=== PATIENT | female | born 1960 | race Hispanic/Latino ===

== ENCOUNTER 2016-07-11 08:23 | Observation (INO) | payer BC ==
[~2016-07-11] VITALS: Ht 152.4 cm; Wt 86.6 kg
[~2016-07-11 08:23] MED LIST: AMARYL4 MG PO; AMOXICILLIN500 MG PO; AMOXICILLIN875 MG PO; ASPIRIN 8181 MG PO; LIPITOR40 M1 PO; LISINOPRIL20 M1 PO; METFORMIN1000 MG PO
--- NOTE | 2016-07-11 08:26 | NUR ---
PT TO ROOM VIA WHEELCHAIR FOR TREATMENT
[2016-07-11 08:49] LABS: HEMATOCRIT 36.8 % (37.0-47.0); HEMOGLOBIN 11.9 g/dl (12.0-16.0); IMMATURE GRANULOCYTES 0.3 % (0.0-1.0); MEAN CELL VOLUME 83.3 fL CALC (80.0-100.0); MEAN CORPUSCULAR HGB 26.9 pG CALC (26.0-32.0); MEAN CORPUSCULAR HGB CONC 32.3 g/L CALC (32.0-36.0); NEUT# 6.59 thou/uL (2.00-7.15); RED BLOOD COUNT 4.42 mill/uL (4.20-5.60); RED CELL DISTRI WIDTH 17.2 % (11.5-15.5)
[2016-07-11] MEDS ORDERED: FERROUS SULF325 M2 PO (08:50)
[2016-07-11] MEDS ORDERED: ASPIRIN81 MG PO (08:51)
[2016-07-11 09:07] LABS: ALKALINE PHOSPHATASE 142 u/l (38-126); ANION GAP 16 (6-22 (CALC)); BILIRUBIN, TOTAL 0.5 mg/dL (0.0-1.4); BUN 9 mg/dL (7-17); BUN/CREATININE RATIO 20 (12-20 (CALC)); CALCIUM 9.5 mg/dL (8.4-10.2); CARBON DIOXIDE 24 mmol/l (22-30); CHLORIDE 106 mmol/l (95-108); CREATININE 0.5 mg/dL (0.5-1.0); GFR > 60 ML/MIN (>=60 (CALC)); GFR FOR AFR.AMER. > 60 ML/MIN (>=60 (CALC)); GLUCOSE 133 mg/dL (65-105); POTASSIUM 4.2 mmol/l (3.5-5.1); SGOT/AST 25 u/l (14-36); SGPT/ALT 38 u/l (9-52); SODIUM 141 mmol/l (137-146); TOTAL PROTEIN 7.7 g/dL (6.3-8.2)
[2016-07-11 09:21] LABS: MYOGLOBIN 23 ng/mL (0 - 62)
--- NOTE | 2016-07-11 10:18 | NUR ---
PT AND DTR UPDATED BY EDP ON FINDINGS, AWARE OF PENDING ADMISSION FOR OBSERVATION. SANDWICH PROVIDED.
--- NOTE | 2016-07-11 10:23 | NUR ---
SBAR PRINTED TO FLOOR
--- NOTE | 2016-07-11 11:41 | NUR ---
REPORT RECEIVED FROM SHIKHA IN ED, PT ARRIVED ON UNIT VIA W/C, ALERT AND ORIENTED X 3, SETTLED IN BED, C/O PAIN @ 3/10 BELOW LEFT BREAST RADIATING TO BACK, EDUCATED ON FALL PRECAUTION, CALL CASTLE IN REACH, FAMILY MEMBER AT BEDSIDE.
[2016-07-11 11:42] VITALS: BP 121/77
--- NOTE | 2016-07-11 11:42 | NUR ---
PT TAKEN TO ROOM 283 WITHOUT INCIDENT, REPORT WAS TO KEEGAN.
--- NOTE | 2016-07-11 12:00 | NUR ---
ATE MEAL, NO C/O DISCOMFORT, FAMILY MEMBER AT BEDSIDE.
--- NOTE | 2016-07-11 16:00 | NUR ---
ALL NEEDS ADDRESSED, EDUCATED ON DVT PROPHYLAXIS, ERMIAS HOSE PLACED, CALL CASTLE IN REACH.
[2016-07-11 16:28] VITALS: BP 122/77
[2016-07-11 19:25] VITALS: BP 121/74
--- NOTE | 2016-07-11 19:55 | NUR ---
PT SITTING IN CHAIR A/O X3, RESPIRATIONS EVEN AND UNLABORED. ADMITS TO PAIN STARTING UNDER LEFT BREAST TO LEFT FLANK 2/10, DENIES NEED FOR PAIN MEDS AT THIS TIME. TELE IN PLACE. ENCOURAGED TO USE CALL LIGHT FOR ASSISTANCE, FAMILY AT BED SIDE.
[2016-07-12 00:15] VITALS: BP 96/61
--- NOTE | 2016-07-12 01:00 | NUR ---
RESTING IN SEMIFOWLERS WITH EYES CLOSED, RESPIRATIONS EVEN AND UNLABORED.
--- NOTE | 2016-07-12 04:00 | NUR ---
RESTING IN BED WITH EYES CLOSED, RESPONDS EASILY TO VERBAL COMMAND, DENIES CHEST PAIN.
[2016-07-12 04:18] VITALS: BP 113/75
--- NOTE | 2016-07-12 07:00 | NUR ---
RECEIVED BEDSIDE REPORT FROM DAVEY CHINO. PT RESTING IN BED WITH EYES CLOSED, AWAKENS EASILY. DAUGHTER AT BEDSIDE. RESPS EVEN AND UNLABORED ON ROOM AIR, TELE MONITOR IN PLACE. VOICES NO NEEDS AT THIS TIME. DENIES PAIN OR DISCOMFORT. SAFETY PRECAUTIONS REINFORCED. BED IN LOWEST POSITION WITH WHEELS LOCKED. PLAN OF CARE DISCUSSED. CALL LIGHT WITHIN REACH. ENCOURAGED PT AND VISITOR TO CALL FOR ANY NEEDS.
[2016-07-12 07:35] VITALS: BP 95/62
[2016-07-12 07:46] VITALS: BP 95/62
--- NOTE | 2016-07-12 10:00 | NUR ---
DR GARZON IN WITH PT, NEW ORDERS RECEIVED.
[2016-07-12] MEDS ORDERED: NAPROXEN500 MG PO (10:09)
--- NOTE | 2016-07-12 10:53 | NUR ---
Discharge instructions given. Patient verbalizes understanding of same. Discharged in stable condition via Wheelchair to Home with family. All belongings sent with pt.
== END 2016-07-12 10:55 | disposition home or self-care (01) | DRG 313 ==
LOC: ENPENDDIS → ED 08:23 → ED-I 10:05 → ED 10:23 → MS2 10:24
PROVIDERS: Emergency Medicine; ADMIT Internal Medicine; ATTEND Internal Medicine
DX: R07.89 Other chest pain (principal); I10 Essential (primary) hypertension; E11.9 Type 2 diabetes mellitus without complications; E78.5 Hyperlipidemia, unspecified; E66.9 Obesity, unspecified; R94.6 Abnormal results of thyroid function studies; Z79.84 Long term (current) use of oral hypoglycemic drugs; Z68.37 Body mass index [BMI] 37.0-37.9, adult
CPT/HCPCS: G0378

== ENCOUNTER 2017-02-04 22:49 | Emergency (ER) | payer BC ==
[~2017-02-04] VITALS: Ht 152.4 cm; Wt 86.6 kg
[~2017-02-04 22:49] MED LIST changes: +ASPIRIN81 MG PO; +FERROUS SULF325 M2 PO; +NAPROXEN500 MG PO
[2017-02-04 23:56] LABS: INFLUENZA A POSITIVE (NONE DETECT); INFLUENZA B NONE DETECTED (NONE DETECT)
[2017-02-05] MEDS ORDERED: TAM75CAP PO (00:07)
[2017-02-05] MEDS ORDERED: AFRIN 12 HOUR0.05 % (00:08)
[2017-02-05 00:27] VITALS: BP 124/78
== END 2017-02-05 00:28 | disposition home or self-care (01) | DRG 153 ==
LOC: ED 22:49
PROVIDERS: Emergency Medicine
DX: J11.1 Influenza due to unidentified influenza virus with other respiratory manifestations (principal); R05 Cough; R09.81 Nasal congestion; R09.89 Other specified symptoms and signs involving the circulatory and respiratory systems; R50.9 Fever, unspecified

== ENCOUNTER 2018-10-29 11:56 | Emergency (ER) | payer BC ==
[~2018-10-29] VITALS: Ht 152.4 cm; Wt 75.0 kg
[~2018-10-29 11:56] MED LIST changes: +AFRIN 12 HOUR0.05 %; +TAM75CAP PO
[2018-10-29 12:33] LABS: URINE BILIRUBIN - DIPSTICK NEGATIVE (NEGATIVE); URINE BLOOD DIPSTICK NEGATIVE (NEGATIVE); URINE COLOR YELLOW; URINE GLUCOSE - DIPSTICK NEGATIVE (NEGATIVE); URINE KETONE NEGATIVE (NEGATIVE); URINE LEUK ESTERASE NEGATIVE (NEGATIVE); URINE NITRITE - DIPSTICK NEGATIVE (Negative); URINE PH 6.5 (4.5-8.0); URINE PROTEIN - DIPSTICK NEGATIVE (NEG-TRACE); URINE SPECIFIC GRAVITY 1.015; URINE UROBILINOGEN - DIPSTICK 0.2 E.U./dL (0.2)
[2018-10-29 12:33] LABS: HEMOGLOBIN 10.5 g/dl (12.0-16.0); IMMATURE GRANULOCYTES 0.4 % (0.0-5.0); MEAN CORPUSCULAR HGB 22.1 pG CALC (26.0-32.0); NEUT# 5.23 thou/uL (2.00-7.15); RED BLOOD COUNT 4.76 mill/uL (4.20-5.60); RED CELL DISTRI WIDTH 17.3 % (11.5-15.5)
[2018-10-29 12:34] LABS: MEAN CELL VOLUME 73.5 fL CALC (80.0-100.0)
[2018-10-29] MEDS ORDERED: B121000 MCG PO (12:39)
[2018-10-29] MEDS ORDERED: GLIMEPIRIDE2 MG PO (12:39)
[2018-10-29] MEDS ORDERED: ATORVASTATIN CA80 MG PO (12:40)
[2018-10-29] MEDS ORDERED: LEVOTHYROXIN125 MCG PO (12:41)
[2018-10-29] MEDS ORDERED: LISINOPRIL5 MG PO (12:42)
[2018-10-29 12:55] LABS: ALBUMIN 4.4 g/dL (3.2-5.0); ALKALINE PHOSPHATASE 171 u/l (38-126); ANION GAP 16 (6-22 (CALC)); BILIRUBIN, TOTAL 0.4 mg/dL (0.0-1.4); BUN 12 mg/dL (7-17); BUN/CREATININE RATIO 24 (12-20 (CALC)); CARBON DIOXIDE 25 mmol/l (22-30); CHLORIDE 106 mmol/l (95-108); CREATININE 0.5 mg/dL (0.5-1.0); GFR > 60 ML/MIN (>=60 (CALC)); GFR FOR AFR.AMER. > 60 ML/MIN (>=60 (CALC)); POTASSIUM 4.3 mmol/l (3.5-5.1); SGOT/AST 22 u/l (14-36); SODIUM 143 mmol/l (137-146); TOTAL PROTEIN 7.8 g/dL (6.3-8.2)
[2018-10-29] MEDS ORDERED: CYCLOBENZAPRINE5 MG PO (13:30)
[2018-10-29] MEDS ORDERED: VISTARIL 50MG C50 M1 PO (13:30)
[2018-10-29 13:45] VITALS: BP 126/68
== END 2018-10-29 13:45 | disposition home or self-care (01) | DRG 552 ==
LOC: ED 11:56
PROVIDERS: Family Medicine
DX: M54.2 Cervicalgia (principal); R25.1 Tremor, unspecified; F41.9 Anxiety disorder, unspecified; E11.9 Type 2 diabetes mellitus without complications; I10 Essential (primary) hypertension

== ENCOUNTER 2019-08-28 03:47 | Inpatient (IN) | payer BC ==
[~2019-08-28] VITALS: Ht 152.4 cm; Wt 81.8 kg
[~2019-08-28 03:47] MED LIST changes: +ATORVASTATIN CA80 MG PO; +B121000 MCG PO; +CYCLOBENZAPRINE5 MG PO; +GLIMEPIRIDE2 MG PO; +LEVOTHYROXIN125 MCG PO; +LISINOPRIL2.5 MG PO; +VISTARIL 50MG C50 M1 PO
--- NOTE | 2019-08-28 07:28 | NUR ---
AMBULATED TO ROOM WITH STEADY GAIT.
--- NOTE | 2019-08-28 07:30 | NUR ---
PT ASSESSED. CHANGED TO GOWN. MONITORS APPLIED. PT AO X 3. BOLIVIAN SPEAKING, SON PRESENT FOR INTERPRETATION. PT REPORTS NAUSEA AND ANXIETY THIS SINCE LAST NIGHT. PT POSITIONED FOR COMFORT. HOB ELEVATED. CALL CASTLE AT BEDSIDE.
[2019-08-28] MEDS ORDERED: ZPAK PO (07:41)
[2019-08-28 07:55] LABS: HEMATOCRIT 31.3 % (37.0-47.0); HEMOGLOBIN 9.3 g/dl (12.0-16.0); IMMATURE GRANULOCYTES 0.3 % (0.0-5.0); MEAN CELL VOLUME 69.4 fL CALC (80.0-100.0); MEAN CORPUSCULAR HGB 20.6 pG CALC (26.0-32.0); MEAN CORPUSCULAR HGB CONC 29.7 g/dL CAL (32.0-36.0); NEUT# 2.67 thou/uL (2.00-7.15); RED BLOOD COUNT 4.51 mill/uL (4.20-5.60); RED CELL DISTRI WIDTH 17.7 % (11.5-15.5)
--- NOTE | 2019-08-28 07:55 | NUR ---
NITROGYLCERIN HELD FOR BP 100/59. DR TONEY AWARE
[2019-08-28 08:06] LABS: URINE BILIRUBIN - DIPSTICK NEGATIVE (NEGATIVE); URINE BLOOD DIPSTICK NEGATIVE (NEGATIVE); URINE COLOR YELLOW; URINE GLUCOSE - DIPSTICK NEGATIVE (NEGATIVE); URINE KETONE TRACE mg/dL (NEGATIVE); URINE LEUK ESTERASE NEGATIVE (NEGATIVE); URINE NITRITE - DIPSTICK NEGATIVE (Negative); URINE PROTEIN - DIPSTICK TRACE mg/dL (NEG-TRACE); URINE SPECIFIC GRAVITY 1.025; URINE UROBILINOGEN - DIPSTICK 0.2 E.U./dL (0.2)
[2019-08-28 08:07] LABS: ALBUMIN 3.9 g/dL (3.2-5.0); ALKALINE PHOSPHATASE 177 u/l (38-126); ANION GAP 13 (6-22 (CALC)); BILIRUBIN, TOTAL 0.4 mg/dL (0.0-1.4); BUN 12 mg/dL (7-17); BUN/CREATININE RATIO 29 (12-20 (CALC)); CARBON DIOXIDE 24 mmol/l (22-30); CHLORIDE 105 mmol/l (95-108); CREATININE 0.4 mg/dL (0.5-1.0); GFR > 60 ML/MIN (>=60 (CALC)); GFR FOR AFR.AMER. > 60 ML/MIN (>=60 (CALC)); LIPASE 65 u/l (23-300); POTASSIUM 4.4 mmol/l (3.5-5.1); SODIUM 137 mmol/l (137-146); TOTAL PROTEIN 7.2 g/dL (6.3-8.2)
[2019-08-28 08:16] LABS: SGOT/AST 55 u/l (14-36)
--- NOTE | 2019-08-28 08:55 | NUR ---
PT RESTING ON STRETCHER. SON AT BEDSIDE. AWAITING RESULTS
[2019-08-28 08:56] LABS: C-REACTIVE PROTEIN 26.3 mg/dL (0-0.9)
--- NOTE | 2019-08-28 10:00 | NUR ---
PT RESTING COMFORTABLY AWAITING RESULTS
--- NOTE | 2019-08-28 11:00 | NUR ---
PT RESTING ON STRETCHER. AWAITING MED SURG BED ASSIGNMENT
--- NOTE | 2019-08-28 11:16 | NUR ---
PT ER HOLD FOR BED PLACEMENT.
--- NOTE | 2019-08-28 12:20 | NUR ---
PT GIVEN LUNCH TRAY AND PO FLUIDS
--- NOTE | 2019-08-28 12:54 | NUR ---
PT UP TO BEDSIDE COMMODE.
--- NOTE | 2019-08-28 13:08 | NUR ---
SBAR PRINTED TO FLOOR
--- NOTE | 2019-08-28 14:17 | NUR ---
REPORT REC FROM DONALDO GRAVES
--- NOTE | 2019-08-28 14:22 | NUR ---
REPORT GIVEN TO MONICA GRAVESINTERNATIONAL BANKER
--- NOTE | 2019-08-28 14:50 | NUR ---
PT ARRIVED TO MS ACCOMPANIED BY DONALDO GRAVES. PT A&O X3. NO DISTRESS NOTED. PT DENIES ANY CP OR SOB AT THIS TIME. STATES THAT SHE HAD SLIGHT ANXIETY LAST NIGHT. DENIES BEING IN CONTACT WITH ANYONE SUSPECTED OF COVID OR UNDER INVESTIGATION. ORIENTED PT TO ROOM. ASSESSMENT COMPLETED. DISCUSSED POC. CALL LIGHT IN REACH. CONTINUE TO MONITOR.
--- NOTE | 2019-08-28 14:50 | NUR ---
PT TRANSPORTED TO MED SURG VIA STRETCHER, TELEMETRY IN PLACE
[2019-08-28 16:02] VITALS: BP 115/63
--- NOTE | 2019-08-28 18:00 | NUR ---
PT LAYING IN BED. NO NEEDS AT THIS TIME. CALL LIGHT IN REACH. CONTINUE TO MONITOR
--- NOTE | 2019-08-28 19:03 | NUR ---
REPORT FROM PATSY CHINO. PT NOTED RESTING IN BED. NO APPARENT DISTRESS NOTED. PT DENIES ANY PAIN OR SOB. ALERT AND ORIENTED. IV SITE APPEARS HEALTHY WITH IVF INFUSING. CLINIC CLERK IN PLACE. DISCUSSED POC. PT VERBALIZED UNDERSTANDING. CALL LIGHT WITHIN REACH. WILL CONTINUE TO MONITOR.
--- NOTE | 2019-08-28 21:06 | NUR ---
PT MEDICATED ORDERED. PT TOLERATED WELL. DENIES ANY PAIN OR SOB. NO CURRENT WANTS OR NEEDS. CALL LIGHT WITHIN REACH. WILL CONTINUE TO MONITOR.
[2019-08-28 21:18] VITALS: BP 111/60
[2019-08-29] VITALS (7 sets, daily range): BP systolic 103–145; BP diastolic 55–73
--- NOTE | 2019-08-29 00:22 | NUR ---
PT RESTING IN BED. NO APPARENT DISTRESS NOTED. VSS. NO CURRENT WANTS OR NEEDS. CALL LIGHT WITHIN REACH. WILL CONTINUE TO MONITOR.
--- NOTE | 2019-08-29 04:12 | NUR ---
PT RESTING IN BED. NO APPARENT DISTRESS NOTED. PT REMAINS ON RA, RESPIRATIONS EVEN AND UNLABORED. VSS. CALL LIGHT WITHIN REACH. WILL CONTINUE TO MONITOR.
--- NOTE | 2019-08-29 07:00 | NUR ---
REPORT RECEIVED FROM LULÚ MCLAUGHLIN. PT RESTING IN BED SEMI FOWLERS; ALERT AND ORIENTED. DENIES PAIN. RESPIRATIONS EVEN AND UNLABORED ON ROOM AIR. ACCU CHECK 122. REMAINS ON AIRBORNE/CONTACT PRECAUTIONS WHOLE COVID SWAB IS PENDING. PLAN OF CARE REVIEWED. PT ENCOURAGED TO VERBALIZE CONCERNS. STATES UNDERSTANDING. SAFETY MEASURES IN PLACE. CALL LIGHT WITHIN REACH.
--- NOTE | 2019-08-29 10:34 | NUR ---
FAMILY UPDATED VIA TELEPHONE. ROCEPHIN AND ZITHROMAX INFUSED; IV SITE APPEARS HEALTHY AND FLUSHES; MAINTENANCE FLUIDS CONTINUE AT 100ML/HR. SPO2 IN THE 90'S; PT DOES REPORT SOB WITH EXERTION.
--- NOTE | 2019-08-29 13:19 | NUR ---
DC'D iV TEMPORARILY SO PT CAN TAKE SHOWER.
--- NOTE | 2019-08-29 13:56 | NUR ---
SPO2 91% ON ROOM AIR AFTER EXERTION OF SHOWER. IV FLUIDS AGAIN INFUSING. PT HAS NO REQUESTS OR CONCERNS AT THIS TIME. SAFETY MEASURES IN PLACE. CALL LIGHT WITHIN REACH.
--- NOTE | 2019-08-29 17:25 | NUR ---
COVID RAPID SWAB OBTAINED AND SENT TO LAB.
--- NOTE | 2019-08-29 18:42 | NUR ---
POSITIVE COVID RESULTS OBTAINED FROM RAPID SWAB. PT NOTIFIED.
--- NOTE | 2019-08-29 19:05 | NUR ---
REPORT FROM DEJUAN GRAVES. PT NOTED RESTING IN BED. NO APPARENT DISTRESS NOTED. AFEBRILE. PT REMAINS ON RA. PT DENIES ANY PAIN OR DISCOMFORT. DISCUSSED POC. PT VERBALIZED UNDERSTANDING. NO CURRENT WANTS OR NEEDS. CALL LIGHT WITHIN REACH. WILL CONTINUE TO MONITOR.
--- NOTE | 2019-08-29 21:23 | NUR ---
PT MEDICATED ORDERED. PT DENIES ANY PAIN OR SOB. NO APPARENT DISTRESS NOTED AND NO CURRENT WANTS OR NEEDS. CALL LIGHT WITHIN REACH. WILL CONTINUE TO MONITOR.
--- NOTE | 2019-08-30 01:07 | NUR ---
PT RESTING IN BED WITH EYES CLOSED. NO APPARENT DISTRESS NOTED. CALL LIGHT WITHIN REACH. WILL CONTINUE TO MONITOR.
[2019-08-30 03:35] VITALS: BP 115/65
--- NOTE | 2019-08-30 05:31 | NUR ---
PT RESTING IN BED WITH NO DISTRESS NOTED. LABS DRAW AT THIS TIME. PT TOLERATED WELL. CALL LIGHT WITHIN REACH. WILL CONTINUE TO MONITOR.
[2019-08-30 06:06] LABS: BASO% 1 % (0-3); EOS% 2 % (0-8); HEMATOCRIT 26.8 % (37.0-47.0); IMMATURE GRANULOCYTES 1.4 % (0.0-5.0); LYMPH% 59 % (15-41); MEAN CELL VOLUME 69.3 fL CALC (80.0-100.0); MEAN CORPUSCULAR HGB 20.7 pG CALC (26.0-32.0); MEAN CORPUSCULAR HGB CONC 29.9 g/dL CAL (32.0-36.0); MONO% 11 % (2-13); NEUT# 0.57 thou/uL (2.00-7.15); NEUT% 26 % (42-76); RED BLOOD COUNT 3.87 mill/uL (4.20-5.60); RED CELL DISTRI WIDTH 17.5 % (11.5-15.5)
[2019-08-30 06:17] LABS: PLATELET COUNT 493 thou/uL (130-400)
[2019-08-30 06:46] LABS: ALKALINE PHOSPHATASE 140 u/l (38-126); ANION GAP 10 (6-22 (CALC)); BUN 6 mg/dL (7-17); BUN/CREATININE RATIO 15 (12-20 (CALC)); C-REACTIVE PROTEIN 8.8 mg/dL (0-0.9); CARBON DIOXIDE 25 mmol/l (22-30); CHLORIDE 106 mmol/l (95-108); CREATININE 0.4 mg/dL (0.5-1.0); GFR > 60 ML/MIN (>=60 (CALC)); GFR FOR AFR.AMER. > 60 ML/MIN (>=60 (CALC)); POTASSIUM 4.2 mmol/l (3.5-5.1); SGOT/AST 44 u/l (14-36); SODIUM 137 mmol/l (137-146); TOTAL PROTEIN 6.2 g/dL (6.3-8.2)
[2019-08-30 07:06] LABS: ALBUMIN 3.1 g/dL (3.2-5.0); BILIRUBIN, TOTAL 0.2 mg/dL (0.0-1.4)
--- NOTE | 2019-08-30 07:15 | NUR ---
REPORT RECEIVED FROM LULÚ MCLAUGHLIN. PT RESTING IN BED SUPINE; ALERT AND ORIENTED. DENIES PAIN. RESPIRATIONS EVEN AND UNLABORED ON ROOM AIR; SPO2 93%. PT REMAINS ON AIRBORNE/CONTACT PRECAUTIONS FOR POSITIVE COVID SWAB. PLAN OF CARE REVIEWED. PT ENCOURAGED TO VERBALIZE CONCERNS. STATES UNDERSTANDING. SAFETY MEASURES IN PLACE. CALL LIGHT WITHIN REACH.
[2019-08-30 08:15] VITALS: BP 112/61
[2019-08-30 11:00] VITALS: BP 101/53
--- NOTE | 2019-08-30 11:20 | NUR ---
MACHINE CLOTH TRIMMER AT BEDSIDE. PT IS INDEPENDENT IN ROOM AND REQUESTING TO BE DISCHARGED. RESPIRATIONS EVEN AND UNLABORED ON ROOM AIR. IV FLUIDS INFUSING AT KVO; IV SITE APPEARS HEALTHY. TELE ON. VSS.
--- NOTE | 2019-08-30 13:25 | NUR ---
DR. TRAN AT BEDSIDE.
[2019-08-30 15:00] VITALS: BP 110/57
--- NOTE | 2019-08-30 16:00 | NUR ---
PT ASSISTED WITH SHOWER AND NOW RESTING IN BED; RECONNECTED TO IV FLUIDS AT [facility]. NO REQUESTS OR CONCERNS AT THIS TIME.
--- NOTE | 2019-08-30 18:41 | NUR ---
C\O PAIN AT IV SITE SWELLING NOTED AND PAIN WITH FLUSHING. IV D\C'D AND NEW SITE PLACED TO NEFTALI. IV FLUIDS AGAIN INFUSING AT KVO. PT SITTING UP ON EDGE OF BED EATING DINNER. PLEASANT. CALL LIGHT WITHIN REACH.
[2019-08-30 20:35] VITALS: BP 131/65
--- NOTE | 2019-08-30 21:35 | NUR ---
PT MEDICATED AND ASSESSMENT COMPLETED AT THIS TIME. PT REPORTS MILD PAIN IN CHEST AREA WHEN COUGHING. DENIES SOB. LUNG SOUNDS CLEAR/DIM, ABD ACTIVE NO TENDERNESS AT THIS TIME. PT REPORTS 2X STOOL OUTPUT THIS DAY. DENIES ANY OTHER NEEDS FOR COMFORT. ENCOURAGED TO USE CALL LIGHT NEEDS ARISE.
[2019-08-31] VITALS (7 sets, daily range): BP systolic 97–149; BP diastolic 48–79
--- NOTE | 2019-08-31 00:07 | NUR ---
COBOL DEVELOPER IN OBTAINING V/S AT THIS TIME. NO S/O DISTRESS NOTED. CALL LIGHT AT BEDSIDE.
--- NOTE | 2019-08-31 04:41 | NUR ---
PT SLEEPING, AWOKE TO REMODELER ENTERING THE ROOM. NO S/O DISTRESS NOTED. CALL LIGHT AT BEDSIDE AND PT ENCOURAGED TO CALL IF ANY NEEDS ARISE.
--- NOTE | 2019-08-31 06:09 | NUR ---
PT MEDICATED ORDERS PROVIDE. DENIES ANY OTHER NEEDS.
--- NOTE | 2019-08-31 07:44 | NUR ---
REPORT RECEIVED FROM ELY ROLON. PT RESTING IN BED; ALERT AND ORIENTED; NOR[place]GI[place] SPEAKING ONLY. C/O MODERATE HEADACHE. RESPIRATIONS EVEN AND UNLABORED ON ROOM AIR; PT DENIES SOB. AIRBORNE/CONTACT. IV FLUIDS INFUSING AT KVO; IV SITE APPEARS HEALTHY. TELE ON. ACCU CHECK 157. BREAKFAST TRAY DELIVERED AND PT SAT UP ON EDGE OF BED TO EAT 75%. SAFETY MEASURES IN PLACE. CALL LIGHT WITHIN REACH.
--- NOTE | 2019-08-31 09:00 | NUR ---
TYLENOL GIVEN FOR HEADACHE WITH GOOD EFFECT. ROCEPHIN AND ZITHROMAX INFUSING AT THIS TIME. BLOOD CULTURE 1/4 GRAM POSSITIVE COCCI; NEW ORDER FOR KOBEO RECEIVED.
--- NOTE | 2019-08-31 11:04 | NUR ---
PRELIMINARY CULTURE RESULTS CALLED TO . GIVE VANCOMYCIN X1 DOSE. PHARMACY WILL FOLLOW FOR FINAL RESULTS
--- NOTE | 2019-08-31 14:24 | NUR ---
PT RESTING IN BED; INDEPENDENT TO BATHROOM. NO REQUESTS OR CONCERNS AT THIS TIME. SAFETY MEASURES IN PLACE. CALL LIGHT WITHIN REACH.
--- NOTE | 2019-08-31 15:29 | NUR ---
PT CALLED WITH C/O OF INCREASED DIFFICULTY BREATHING; ANXIOUS AND MAKING HAND MOTIONS THAT SHE IS HAVING A HARD TIME BREATHING. SPO2 89% ON ROOM AIR; RR 30. HOB ELEVATED AND 2L OXYGEN VIA NC APPLIED. COOL CLOTH TO FOREHEAD FOR C/O FEELING HOT. SPO2 NOW 92% AND PT IS MORE RELAXED. WILL CONTINUE TO MONITOR.
--- NOTE | 2019-08-31 17:30 | NUR ---
PT RESTING MORE COMFORTABLY WITH RESPIRATIONS EVEN AND UNLABORED ON 2L VIA NC; SPO2 96%. PT REMOVING OXYGEN TO AMBULATE TO BATHROOM; WILL APPLY EXTENSION TUBING TO REACH. NO FURTHER REQUESTS OR CONCERNS.
--- NOTE | 2019-08-31 20:00 | NUR ---
PT AMBULATING ROM BATHROOM, NO SIGNS OF DISTRESS NOTED, RESP EVEN AND UNLABORED. O2 EXTENSION TUBING PLACED SO PT MAY AMBULATE TO BATHROOM WITH OXYGEN. DISCUSSED POC, PT VOICES NO NEEDS OR COMPLAINTS AT THIS TIME, ASSESSMENT COMPLETED, CALL LIGHT IN REACH,CONTINUE TO MONITOR.
--- NOTE | 2019-08-31 23:46 | NUR ---
PT RETURNED FROM BATHROOM, NO SIGNS OF DISTRESS NOTED, RESP EVEN AND UNLABORED. PT WITH 02 2L NC, DISCUSSED NEW MEDICATION WITH PT, VERBALIZED UNDERSTANDING. VITALS OBTAINED, CALL LIGHT IN REACH,CONTINUE TO MONITOR.
[2019-09-01 05:02] VITALS: BP 132/67
--- NOTE | 2019-09-01 05:11 | NUR ---
PT AMBULATING BACK FROM BATHROOM, PT VOICES NO NEEDS OR COMPLAINTS AT THIS TIME, MEDICATED PER MAR. VITALS AND LABS OBTAINED PT TOLERATED WELL. CALL LIGHT IN REACH,CONTINUE TO MONITOR.
[2019-09-01 05:40] LABS: HEMOGLOBIN 9.8 g/dl (12.0-16.0); MEAN CELL VOLUME 69.5 fL CALC (80.0-100.0); MEAN CORPUSCULAR HGB 20.5 pG CALC (26.0-32.0); MEAN CORPUSCULAR HGB CONC 29.4 g/dL CAL (32.0-36.0); NEUT# 5.18 thou/uL (2.00-7.15); RED BLOOD COUNT 4.79 mill/uL (4.20-5.60); RED CELL DISTRI WIDTH 17.5 % (11.5-15.5)
[2019-09-01 06:16] LABS: ALKALINE PHOSPHATASE 160 u/l (38-126); ANION GAP 16 (6-22 (CALC)); BUN 8 mg/dL (7-17); BUN/CREATININE RATIO 20 (12-20 (CALC)); C-REACTIVE PROTEIN 4.1 mg/dL (0-0.9); CARBON DIOXIDE 24 mmol/l (22-30); CHLORIDE 102 mmol/l (95-108); CREATININE 0.4 mg/dL (0.5-1.0); GFR > 60 ML/MIN (>=60 (CALC)); GFR FOR AFR.AMER. > 60 ML/MIN (>=60 (CALC)); POTASSIUM 4.9 mmol/l (3.5-5.1); SGOT/AST 42 u/l (14-36); SODIUM 138 mmol/l (137-146)
[2019-09-01 06:26] LABS: ALBUMIN 4.2 g/dL (3.2-5.0); BILIRUBIN, TOTAL 0.4 mg/dL (0.0-1.4); TOTAL PROTEIN 7.7 g/dL (6.3-8.2)
[2019-09-01 06:36] LABS: HEMATOCRIT 33.3 % (37.0-47.0)
--- NOTE | 2019-09-01 07:00 | NUR ---
REPORT RECEIVED FROM LULÚ CEDILLO. PT RESTING SUPINE; ALERT AND ORIENTED. DENIES PAIN AND SOB. RESPIRATIONS EVEN AND UNLABORED ON OXYGEN 2L VIA NC; SPO2 94%. PT HAS NO COMPLAINTS AT THIS TIME. IV FLUIDS INFUSING AT KVO; NORMAL SALINE BAG REPLACED ALONG WITH ALL TUBING. SAFETY MEASURES IN PLACE. CALL LIGHT WITHIN REACH.
[2019-09-01 08:07] VITALS: BP 126/72
[2019-09-01 09:55] VITALS: BP 107/57
--- NOTE | 2019-09-01 10:15 | NUR ---
PT C/O SEVERE PAIN UNDER LEFT BREAST WITH DEEP INSPIRATIONS THAT RADIATES TO HER MID BACK; PAIN DECREASES WHEN SHE DOES NOT BREATH DEEP BUT SHE REPORTS A MILD PAIN WITH ALL INSPIRATIONS. SHE DENIES FEELING SOB; REPIRATIONS AT 22 PER MINUTE; SPO2 ON 2L IS 90-91%; TITRATED OXYGEN UP TO 3L TO MAINTAIN O2 GREATER THAN 92%. TYLENOL GIVEN. DR. TRAN NOTIFIED OF PT OXYGEN DEMAND. WILL CLOSELY MONITOR O2. DAUGHTER ON THE PHONE AND UPDATED WELL.
--- NOTE | 2019-09-01 10:23 | NUR ---
AT REST ON 3L SPO2 REMAINS 91-92%. TITRATED UP TO 4L AND NEW OXYGEN PROBE APPLIED TO RIGHT INDEX FINGER; AFTER 5 MINUTES SPO2 IS MAINTAINING AT 94%. PT EDUCATED ON PRONE POSITION AND BREATHING TECHNIUQES.
[2019-09-01 10:40] VITALS: BP 117/68
--- NOTE | 2019-09-01 10:44 | NUR ---
DAUGHTER UPDATED ON NEW ORDERS FOR REMDESIVIR AND INCREASED OXYGEN DEMAND. PT RESTING PRONE NOW. ACCU CHECK 294. ZITHROMAX INFUSING. PT HAS NO FURTHER COMPLAINTS, BUT DOES REPORT THAT SHE WOKE UP WITH COLD SWEAT THIS MORNING; AFEBRILE THROUGH NIGHT AND SHIFT AND CURRENLTY. SKIN COLOR WNL; WARM AND DRY.
--- NOTE | 2019-09-01 12:49 | NUR ---
PT SITTING UP ON EDGE OF BED IN NO RESPIRATORY DISTRESS. REMDESIVIR INFUSING. SPO2 96% ON 4L.
[2019-09-01 14:55] VITALS: BP 102/59
--- NOTE | 2019-09-01 18:08 | NUR ---
IV SITE PAINFUL WITH FLUSHING AND TENDER AROND AREA; SITE DC'D AND NEW SITE PLACED TO LAC; IV FLUIDS AGAIN INFUSING NOW AT KVO. PT SITTING UP FOR DINNER. NO REQUESTS OR CONCERNS. CALL LIGHT WITHIN REACH.
[2019-09-01 18:46] VITALS: BP 143/86
--- NOTE | 2019-09-01 21:20 | NUR ---
UPON ENTERING ROOM PT FOUND TO BE RESTING IN BED. APPEARS COMFORTABLE AND IN NO APPARENT DISTRESS. RESPIRATIONS ARE REGULAR AND UNLABORED. PHYSICAL ASSESMENT COMPLETE AT THIS TIME. SCHEDULED MED(S) ADMINISTERED, SEE E-MAR. PLAN OF CARE REVIEWED, PT DENIES QUESTIONS, VERBALIZES UNDERSTANDING. DENIES NEEDS AT THIS TIME. ITEMS WITHIN REACH, BED LOCKED IN LOW POSITION W/ BEDRAILS UP X2. CALL CASTLE WITHIN REACH, AGREES TO CALL PRN.
--- NOTE | 2019-09-02 01:00 | NUR ---
PT APPEARS TO BE SLEEPING COMFORTABLY, NO APPARENT DISTRESS, RESPIRATIONS REGULAR AND UNLABORED. CALL CASTLE REMAINS WITHIN REACH.
[2019-09-02 04:03] VITALS: BP 109/67
--- NOTE | 2019-09-02 05:44 | NUR ---
PHYSICAL ASSESMENT UNCHANGED FROM BEGINING OF SHIFT BASELINE. PT AFEBRILE, HEMODYNAMICS STABLE. DENIES NEEDS AT THIS TIME. ITEMS REMAIN WITHIN REACH. BED REMAINS LOCKED IN LOW POSITION W/ BEDRAILS UPX2. CALL CASTLE REMAINS WITHIN REACH, AGREES TO CALL PRN.
[2019-09-02 08:00] VITALS: BP 123/71
[2019-09-02 11:05] VITALS: BP 107/77
--- NOTE | 2019-09-02 11:40 | NUR ---
PT AWAKE, ALERT, ORIENTED X 3, WELSH ONLY. PT AMBULATORY IN ROOM. LUNGS CLEAR, USING OXYGEN VIA NASAL CANNULA. ORIGINALLY 4 LPM, TURNED DOWN TO 3 LPM AT 1030. NO RESPIRATORY DISTRESS NOTED.
--- NOTE | 2019-09-02 13:05 | NUR ---
FINAL BLOOD CX RESULTS SHOW COAG NEG MASSIEL CONTAMINANT. SPOKE WITH MADALYN HARDING, NO NEED TO TREAT AT THIS TIME.
--- NOTE | 2019-09-02 15:01 | NUR ---
PT PROVIDED ANTIBIOTIC AND RESDEMEVIR ORDERED. PT SHOWERED THIS MORNING, SEEN AMBULATORY IN ROOM WITHOUT INSTABILITY.
[2019-09-02 15:36] VITALS: BP 124/73
--- NOTE | 2019-09-02 16:53 | NUR ---
PT HAS BEEN WEANED DOWN FROM 2 LPM TO 1 LPM AFTER SATS WERE HIGH 90s. PT REMAINS BEFORE, NO SHORTNESS OF BREATH. FAMILY MEMBER UPDATED ON PHONE.
[2019-09-02 19:26] VITALS: BP 133/71
[2019-09-02 23:45] VITALS: BP 126/72
--- NOTE | 2019-09-03 01:00 | NUR ---
PT APPEARS TO BE SLEEPING COMFORTABLY, NO APPARENT DISTRESS, RESPIRATIONS REGULAR AND UNLABORED. CALL CASTLE REMAINS WITHIN REACH.
[2019-09-03 03:25] VITALS: BP 124/66
--- NOTE | 2019-09-03 08:15 | NUR ---
PT RESTING IN BED, NO SIGNS OF DISTRESS NOTED, RESP EVEN AND UNLABORED. SPO2 90-91% ON 1L INCREASED 02 TO 2L NC SPO2 94. DISCUSSED POC, ASSESSMENT COMPLETED.PT VOICES NO NEEDS OR COMPLAINTS AT THIS TIME. CALL LIGHT IN REACH,CONTINUE TO MONITOR.
[2019-09-03 08:18] VITALS: BP 134/67
[2019-09-03 10:11] LABS: HEMATOCRIT 29.3 % (37.0-47.0); HEMOGLOBIN 8.6 g/dl (12.0-16.0); MEAN CELL VOLUME 70.4 fL CALC (80.0-100.0); MEAN CORPUSCULAR HGB 20.7 pG CALC (26.0-32.0); MEAN CORPUSCULAR HGB CONC 29.4 g/dL CAL (32.0-36.0); RED BLOOD COUNT 4.16 mill/uL (4.20-5.60); RED CELL DISTRI WIDTH 17.8 % (11.5-15.5)
[2019-09-03 10:17] LABS: IMMATURE GRANULOCYTES 6.5 % (0.0-5.0); NEUT# 7.67 thou/uL (2.00-7.15)
[2019-09-03 10:32] LABS: ALBUMIN 3.7 g/dL (3.2-5.0); ALKALINE PHOSPHATASE 119 u/l (38-126); ANION GAP 16 (6-22 (CALC)); BILIRUBIN, TOTAL 0.3 mg/dL (0.0-1.4); BUN 14 mg/dL (7-17); BUN/CREATININE RATIO 29 (12-20 (CALC)); C-REACTIVE PROTEIN 1.3 mg/dL (0-0.9); CARBON DIOXIDE 21 mmol/l (22-30); CHLORIDE 102 mmol/l (95-108); CREATININE 0.5 mg/dL (0.5-1.0); GFR > 60 ML/MIN (>=60 (CALC)); GFR FOR AFR.AMER. > 60 ML/MIN (>=60 (CALC)); POTASSIUM 4.3 mmol/l (3.5-5.1); SGOT/AST 30 u/l (14-36); SODIUM 134 mmol/l (137-146); TOTAL PROTEIN 6.6 g/dL (6.3-8.2)
[2019-09-03 10:45] VITALS: BP 105/62
--- NOTE | 2019-09-03 12:00 | NUR ---
PT RESTING IN BED ON CELL PHONE, NO SIGNS OF DISTRESS NOTED, RESP EVEN AND UNLABORED. PT VOICES NO NEEDS OR COMPLAINTS AT THIS TIME, LUNCH TRAY PROVIDED. CALL LIGHT IN REACH,CONTINUE TO MONITOR.
[2019-09-03 15:56] VITALS: BP 113/65
--- NOTE | 2019-09-03 16:16 | NUR ---
PT VOICES NO NEEDS OR COMPLAINTS AT THIS TIME, CALL LIGHT IN REACH,CONTINUE TO MONITOR.
[2019-09-03 18:58] VITALS: BP 141/68
--- NOTE | 2019-09-03 22:47 | NUR ---
PT IN BED WITH EYES CLOSED. NO S/S OF DISTRESS. MEDICATIONS GIVEN AND TOLERATED WELL. SKIN WARM AND DRY TO TOUCH. DENIES PAIN. RESIDENT IS CONTINENT OF B/B AND ABLE TO AMBULATE TO TOILET. HAS OCCASSIONAL SOB ON EXERTION. O2 ON AT 2LNC WITH O2 SAT 98%.. CALL LIGHT WITHIN REACH AND BED IN LOWEST POSITION. WILL CONTINUE TO OBSERVE.
[2019-09-03 23:50] LABS: HEMATOCRIT 29.2 % (37.0-47.0); HEMOGLOBIN 8.7 g/dl (12.0-16.0); MEAN CELL VOLUME 70.4 fL CALC (80.0-100.0); MEAN CORPUSCULAR HGB CONC 29.8 g/dL CAL (32.0-36.0); RED BLOOD COUNT 4.15 mill/uL (4.20-5.60); RED CELL DISTRI WIDTH 18.1 % (11.5-15.5)
[2019-09-03 23:53] VITALS: BP 115/72
[2019-09-04 04:00] VITALS: BP 124/72
[2019-09-04 05:29] LABS: ALBUMIN 3.8 g/dL (3.2-5.0); ALKALINE PHOSPHATASE 122 u/l (38-126); BILIRUBIN, TOTAL 0.3 mg/dL (0.0-1.4); BUN 19 mg/dL (7-17); BUN/CREATININE RATIO 35 (12-20 (CALC)); CARBON DIOXIDE 25 mmol/l (22-30); CHLORIDE 103 mmol/l (95-108); CREATININE 0.5 mg/dL (0.5-1.0); GFR > 60 ML/MIN (>=60 (CALC)); GFR FOR AFR.AMER. > 60 ML/MIN (>=60 (CALC)); SGOT/AST 36 u/l (14-36); SODIUM 135 mmol/l (137-146); TOTAL PROTEIN 6.8 g/dL (6.3-8.2)
[2019-09-04 05:36] LABS: ANION GAP 12 (6-22 (CALC)); POTASSIUM 5.4 mmol/l (3.5-5.1)
--- NOTE | 2019-09-04 06:22 | NUR ---
pt in bed with eyes open and able to make needs known. Skin warm to touch. pt is easily aroused. medications given and pt tolerated well. pt had a critical platelet of 1066 and md was called and made aware and no new orders. pt is continent of b/b and ambulates to the toilet with no assist needed. bed in lowest position and call light within reach. will continue to observe.
--- NOTE | 2019-09-04 08:15 | NUR ---
PT SITTING ON SIDE OF BED, NO SIGNS OF DISTRESS NOTED, RESP EVEN AND UNLABORED. PT ALERT AND ORIENTED X3, DISCUSSED POC, VERBALIZED UNDERSTANDING. PT 91%ON RA REPLACED 02 BUT TITRATED TO 2L NC, SPO2 92%. PT DENIES SOB, ASSESSMENT COMPLETED, CALL LIGHT IN REACH,CONTINUE TO MONITOR.
[2019-09-04 08:20] VITALS: BP 110/64
--- NOTE | 2019-09-04 09:05 | NUR ---
PT RETURNED TO BED FROM SHOWER, IV ANTIBIOTICS INITATED. CALL LIGHT IN REACH,CONTINUE TO MONITOR.
[2019-09-04 11:09] VITALS: BP 98/62
--- NOTE | 2019-09-04 12:00 | NUR ---
PT SITTING ON SIDE OF BED, NO SIGNS OF DISTRESS NOTED, RESP EVEN AND UNLABORED. PT VOICES NO NEEDS OR COMPLAINTS AT THIS TIME, CALL LIGHT IN REACH,CONTINUE TO MONITOR.
[2019-09-04 15:00] VITALS: BP 98/63
--- NOTE | 2019-09-04 16:01 | NUR ---
PT SATS 88% ON 1L INCREASED PT BACK UP TO 2L AND ENCOURAGED DEEP BREATHES, 02 SAT 97%. PT VOICES NO NEEDS OR COMPLAINTS AT THIS TIME.
--- NOTE | 2019-09-04 18:01 | NUR ---
pt resting in bed, pt voices no needs or complaints at this time. call light in reach,continue to monitor.
[2019-09-04 19:00] VITALS: BP 103/66
--- NOTE | 2019-09-04 19:56 | NUR ---
pt in bed with eyes open and able to make needs known. skin warm to touch. continues on ABt therapy with no adverse side effects. call light within reach and bed in lowest position.
[2019-09-05] VITALS (7 sets, daily range): BP systolic 95–115; BP diastolic 55–72
--- NOTE | 2019-09-05 01:57 | NUR ---
PT IN BED WITH EYES CLOSED. NO S/S OF DISTRESS NOTED. RESPIRATIONS ARE EVEN AND NONLABORED. EASILY AROUSED DURING THE NIGHT. CONTINENT OF B/B AND AMBULATES TO TOILET WITH NO ASSIST NEEDED. WILL CONTINUE TO OBSERVE. CALL LIGTH WITHIN REACH AND BED IN LOWEST POSITION.
[2019-09-05 05:25] LABS: HEMATOCRIT 32.5 % (37.0-47.0); HEMOGLOBIN 9.5 g/dl (12.0-16.0); MEAN CELL VOLUME 71.6 fL CALC (80.0-100.0); MEAN CORPUSCULAR HGB 20.9 pG CALC (26.0-32.0); MEAN CORPUSCULAR HGB CONC 29.2 g/dL CAL (32.0-36.0); RED BLOOD COUNT 4.54 mill/uL (4.20-5.60); RED CELL DISTRI WIDTH 18.8 % (11.5-15.5)
[2019-09-05 05:31] LABS: NEUT# 5.21 thou/uL (2.00-7.15)
[2019-09-05 05:49] LABS: ALBUMIN 3.6 g/dL (3.2-5.0); ALKALINE PHOSPHATASE 123 u/l (38-126); ANION GAP 13 (6-22 (CALC)); BILIRUBIN, TOTAL 0.4 mg/dL (0.0-1.4); BUN 19 mg/dL (7-17); BUN/CREATININE RATIO 41 (12-20 (CALC)); C-REACTIVE PROTEIN 0.9 mg/dL (0-0.9); CARBON DIOXIDE 22 mmol/l (22-30); CHLORIDE 105 mmol/l (95-108); CREATININE 0.5 mg/dL (0.5-1.0); GFR > 60 ML/MIN (>=60 (CALC)); GFR FOR AFR.AMER. > 60 ML/MIN (>=60 (CALC)); POTASSIUM 4.5 mmol/l (3.5-5.1); SGOT/AST 53 u/l (14-36); SODIUM 135 mmol/l (137-146); TOTAL PROTEIN 6.5 g/dL (6.3-8.2)
--- NOTE | 2019-09-05 07:10 | NUR ---
REPORT RECEIVED FROM ELY WALTER.
--- NOTE | 2019-09-05 07:15 | NUR ---
REPORT RECEIVED FROM ELY WALTER.
--- NOTE | 2019-09-05 07:34 | NUR ---
CALLED REGARDING PLATELET OF [id number]. AWARE. PT IN BED WITH EYES CLOSED. NO S/S OF DISTRESS NOTED AND NO RESPIRATORY CONCERNS DURING THE NIGHT. CALL LIGHT WITHIN REACH. WILL CONTINUE TO OBSERVE
--- NOTE | 2019-09-05 08:50 | NUR ---
PT SHOWERED INDEPENDENTLY AND NOW SITTING UP ON EDGE OF BED. ALERT AND ORIENTED. DENIES PAIN. RESPIRATIONS EVEN AND UNLABORED ON OXYGEN 2L VIA NC; SPO2 92%. HR 120; WILL CONTINUE TO MONITOR. TELE REPLACED AND IV FLUIDS RECONNECTED; IV SITE APPEARS HEALTY AND FLUSHES. SAFETY MEASURES IN PLACE. CALL LIGHT WITHIN REACH.
--- NOTE | 2019-09-05 09:30 | NUR ---
SPOKEK WITH DR. VEGAS, HEMOTOLOGY. QUESTIONS ANSWERED AND REPORTED THAT PT IS CLINICALLY ASYMPTOMATIC AND INDEPENDENT IN ROOM. WORKING ON GAINING EMAR ACCESS.
--- NOTE | 2019-09-05 10:07 | NUR ---
DR. ORR AT VIRTUAL BEDSIDE FOR HEMOTOLOGY CONSULT. ABLE TO COMMUNICATE WITH PT IN [place].
--- NOTE | 2019-09-05 11:35 | NUR ---
PT C/O SOME DISCOMFORT AT IV SITE ZITHROMAX IS INFUSING; SITE FLUSHED WELL WITH GOOD BLOOD RETURN; ARM ELEVATED. WILL CONTINUE TO MONITOR.
--- NOTE | 2019-09-05 12:14 | NUR ---
DR. TRAN AT BEDSIDE.
--- NOTE | 2019-09-05 15:11 | NUR ---
REMDESIVIR INFUSING AT THIS TIME. PT INDEPENDNET IN ROOM; AMBULATED TO THE BATHROOM FOR VOID. NEW ORDER RECEIVED FROM FOR VENEFOR INFUSION.
--- NOTE | 2019-09-05 16:19 | NUR ---
DAUGHTER CALLED FOR UPDATE ASKING MULTIPLE QUESTIONS REGARDING LAB WORK, DIET, PLAN OF CARE, ETC. QUESTIONS ANSEWRED TO SATISFACTION.
--- NOTE | 2019-09-05 16:58 | NUR ---
NORMAL SALINE BAG AND IV TUBING REPLACED.
--- NOTE | 2019-09-05 19:55 | NUR ---
PT IN BED WITH EYES OPEN. ABLE TO MAKE NEEDS KNOWN. SKIN WARM TO TOUCH. NO RESPIRATORY DISTRESS NOTED. CALL LIGHT WITHIN REACH. WILL CONTINUE TO OBSERVE.
[2019-09-06 03:45] VITALS: BP 84/60
[2019-09-06 05:50] LABS: HEMATOCRIT 33.3 % (37.0-47.0); HEMOGLOBIN 9.7 g/dl (12.0-16.0); MEAN CORPUSCULAR HGB 21.3 pG CALC (26.0-32.0); MEAN CORPUSCULAR HGB CONC 29.1 g/dL CAL (32.0-36.0); RED BLOOD COUNT 4.56 mill/uL (4.20-5.60); RED CELL DISTRI WIDTH 19.8 % (11.5-15.5)
[2019-09-06 06:02] LABS: IMMATURE GRANULOCYTES 4.3 % (0.0-5.0); NEUT# 4.08 thou/uL (2.00-7.15)
--- NOTE | 2019-09-06 06:33 | NUR ---
PT IN BED WITH EYES CLOSED. NO S/S OF DISTRESS. MEDICATIONS GIVEN AND TOLERATED WELL. FLUIDS GIVEN AND TOLERATED WELL. CONTINENT OF B/B. MADE AWARE OF CRITICAL PLT COUNT OF 1129. HEMETOLOGY CONSULTED. NO S/S OF HYPO/HYPERGLYCEMIA. CALL LIGHT WITHIN REACH AND BED IN LOWEST POSITION. WILL CONTINUE TO OBSERVE
[2019-09-06 07:21] VITALS: BP 93/54
--- NOTE | 2019-09-06 07:30 | NUR ---
REPORT RECEIVED FROM ELY WALTER. PT SITTING UP ON EDGE OF BED; ALERT AND OREINTED. DENIES PAIN. RESPIRATIONS EVEN AND UNLABORED ON OXYGEN 2L VIA NC; SPO2 94%. REMAINS ON AIRBORNE/CONTACT PRECAUTIONS FOR POSITIVE COVID RESULTS. LISINOPRIL HELD FOR SBP IN THE 90'S. IV FLUIDS INFUSING AT KVO; IV SITE APPEARS HEALTHY. PLAN OF CARE REVIEWED. PT ENCOURAGED TO VERBALIZE CONCERNS. STATES UNDERSTANDING. SAFETY MEASURES IN PLACE. CALL LIGHT WITHIN REACH.
[2019-09-06 11:19] VITALS: BP 93/62
--- NOTE | 2019-09-06 12:14 | NUR ---
DR TRAN AT BEDSIDE.
[2019-09-06] MEDS ORDERED: DECADRON2 MG PO (12:23)
--- NOTE | 2019-09-06 12:23 | NUR ---
WALK TEST PERFORMED. PT SPO2 95% ON ROOM AIR; WHILE AMBULATING SPO2 DECREASED TO 92% ON ROOM AIR. PT TOLERATED WELL WITH MILD SOB ON EXERTION.
--- NOTE | 2019-09-06 12:40 | NUR ---
PT REMAINS ON ROOM AIR AFTER WALK TEST; WILL CONTINUE TO MONITOR. SPO2. NO SOB REPORTED DURING REST.
--- NOTE | 2019-09-06 14:30 | NUR ---
IV site discontinued, cath intact. No edema , no redness, voices no discomfort.
--- NOTE | 2019-09-06 14:50 | NUR ---
Discharge instructions given. Patient verbalizes understanding of same. Discharged in stable condition via Wheelchair to Home with family. All belongings sent with pt.
== END 2019-09-06 14:50 | disposition home or self-care (01) | DRG 177 ==
LOC: ED 03:47 → ED-I 10:10 → ED 10:20 → ED-I 10:21 → MS2 10:56 → ED-I 10:56 → MS2 14:28
PROVIDERS: Family Medicine; Internal Medicine; Internal Medicine Hematology & Oncology; Nurse Practitioner Family; ADMIT Internal Medicine; ATTEND Internal Medicine
DX: U07.1 COVID-19 (principal); J12.89 Other viral pneumonia; E11.9 Type 2 diabetes mellitus without complications; I10 Essential (primary) hypertension; E78.5 Hyperlipidemia, unspecified; E03.9 Hypothyroidism, unspecified; D50.9 Iron deficiency anemia, unspecified; D47.3 Essential (hemorrhagic) thrombocythemia; Z79.84 Long term (current) use of oral hypoglycemic drugs
CPT/HCPCS: J1650; J1756; J3370; Q9967